=== PATIENT | male | born 1995 | race Hispanic/Latino ===

== ENCOUNTER 2021-04-24 21:22 | Emergency (ER) | payer OTHER ==
[~2021-04-24] VITALS: Ht 162.6 cm; Wt 64.8 kg
[2021-04-25 01:17] VITALS: BP 145/73
[2021-04-25 01:19] LABS: BASO # 0.1 10^3/uL (0.0-0.2); BASO % 0.5 % (0.0-1.0); EOS # 0.2 10^3/uL (0.0-0.5); HEMATOCRIT 44.9 % (42.0-52.0); HEMOGLOBIN 15.3 g/dl (13.5-17.5); LYMPH # 2.9 10^3/uL (1.5-5.0); LYMPH % 30.1 % (24.0-44.0); MEAN CORPUSCULAR HEMOGLOBIN 30.4 pg (27.0-33.0); MEAN CORPUSCULAR HGB CONC 34.1 g/dl (32.0-36.5); MEAN CORPUSCULAR VOLUME 89.3 fl (80.0-96.0); MONO # 0.7 10^3/uL (0.0-0.8); MONO % 7.4 % (2.0-8.0); NEUTROPHILS # 5.8 10^3/uL (1.5-8.5); NEUTROPHILS % 59.7 % (36.0-66.0); PLATELET COUNT, AUTOMATED 208 10^3/uL (150-450); RED BLOOD COUNT 5.03 10^6/uL (4.30-6.10); WHITE BLOOD COUNT 9.7 10^3/uL (4.0-10.0)
--- NOTE | 2021-04-25 01:28 | REPVR ---
PROCEDURE INFORMATION: Exam: CT Head Without Contrast Exam date and time: 04/25/2021 1:00 AM Age: 25 years old Clinical indication: Pain; Headache; Migraine; Aura effect not specified; Additional info: Headache 2 weeks R temporal lobe TECHNIQUE: Imaging protocol: Computed tomography of the head without contrast. Radiation optimization: All CT scans at this facility use at least one of these dose optimization techniques: automated exposure control; mA and/or kV adjustment per patient size (includes targeted exams where dose is matched to clinical indication); or iterative reconstruction. COMPARISON: No relevant prior studies available. FINDINGS: Images through the base of the brain and posterior fossa, including the brainstem are slightly degraded by beam hardening artifacts from the adjacent calvarium. There is no evidence of acute intracranial hemorrhage, extra axial fluid collection or hematoma. There is no midline shift or herniation. Slight asymmetry of the lateral ventricles, likely anatomic variation. The ventricles are not dilated. No evidence of pneumocephalus. No CT findings are seen at the current time to suggest changes of acute territorial vascular infarction. Note is made however, that CT changes, may lag clinical findings in acute CVA. If clinically indicated, consideration could be given to MRI with diffusion weighted imaging, due to its greater sensitivity, for early detection of acute ischemic change. No evidence of regional or global edema. Incidental intracranial calcifications are noted. No pericranial scalp hematoma is seen. No acute cranial vault fracture is seen. No fluid is seen within the visualized paranasal sinuses or mastoid air cells. The visualized middle ear cavities are not opacified. IMPRESSION: No evidence of an acute intracranial abnormality. No evidence of acute territorial major vessel infarct, mass effect, or hemorrhage. Electronically signed by: Navi Thakkar On 04/25/2021 01:27:49 AM
[2021-04-25 01:40] LABS: ERYTHROCYTE SEDIMENTATION RATE 1 mm/hr (0-15)
[2021-04-25 02:45] LABS: BLOOD UREA NITROGEN 20 MG/DL (7-18); CARBON DIOXIDE LEVEL 27 MEQ/L (21-32); CHLORIDE LEVEL 107 MEQ/L (98-107); CREATININE FOR GFR 1.12 MG/DL (0.70-1.30); FREE T4 1.07 NG/DL (0.76-1.46); GLOMERULAR FILTRATION RATE > 60.0 (>60); GLUCOSE, FASTING 99 MG/DL (70-100); POTASSIUM SERUM 3.9 MEQ/L (3.5-5.1); SODIUM LEVEL 141 MEQ/L (136-145)
[2021-04-26 18:09] LABS: Lyme Disease IgG/IgM Antibodie <0.91 ISR (0.00-0.90); Lyme Disease IgM Ab Quantitati <0.80 index (0.00-0.79)
== END 2021-04-25 02:21 | disposition home or self-care (01) ==
LOC: M ED 21:22
DX: R51.9 Headache, unspecified (principal)

== ENCOUNTER → 2022-01-04 | Outpatient (CLI) | payer OTHER | LOC: M RAD 07:02 | PROVIDERS: ATTEND Physician Assistant | DX: R07.9 Chest pain, unspecified (principal) ==